=== PATIENT | male | born 1955 | race Caucasian/White ===

== ENCOUNTER 2021-01-10 20:10 | Observation (INO) | payer MEDICARE, OTHER ==
[~2021-01-10] VITALS: Ht 167.6 cm; Wt 93.0 kg
[~2021-01-10 20:10] MED LIST: AMIODARONE HCL200 MG PO; ASPIR 8181 MG PO; ATIVAN0.5 MG PO; ATORVASTATIN CA20 MG PO; DEXILANT30 MG PO; DEXILANT60 MG PO; DICYCLOMINE HCL20 MG PO; FENOFIBRATE145 MG PO; FISH OIL300 MG PO; LEVOTHYROXINE50 MCG PO; LEXAPRO10 MG PO; LISINOPRIL2.5 MG PO; METOPROLOL SUCC50 MG PO; MIDODRINE HCL5 MG PO; OMEPRAZOLE20 M1 PO; OMEPRAZOLE20 MG PO; SUCRALFATE1 GM PO; ULTRAM50 MG PO; WARFARIN SODIUM5 MG PO; Z.0.ATENOLOL50 MG PO; Z.0.CRESTOR5 MG PO; ZESTRIL10 MG PO; ZYRTEC-D TABLE1 EACH PO; ZYRTEC10 M3
[2021-01-10 21:16] LABS: BASOPHILS # (AUTO) 0.1 (0.0-0.1); BASOPHILS % 1.5 % (0.0-1.0); EOSINOPHILS # (AUTO) 0.9 (0.0-0.4); EOSINOPHILS % 10.6 % (0.0-6.0); HEMOGLOBIN 13.8 g/dL (14.0-18.0); LYMPHOCYTES # (AUTO) 3.1 (1.0-3.2); LYMPHOCYTES % 38.5 % (18.0-39.1); MEAN CORPUSCULAR HEMOGLOBIN 28.6 pg (28-32); MEAN CORPUSCULAR HGB CONC 33.7 g/dL (31-35); MEAN CORPUSCULAR VOLUME 85.1 fL (81-99); MONOCYTES # (AUTO) 0.8 (0.2-0.8); MONOCYTES % 9.6 % (4.4-11.3); NEUTROPHILS # (AUTO) 3.2 (2.1-6.9); NEUTROPHILS % 39.4 % (38.7-80.0); PLATELET COUNT 274 x10e3/uL (140-360); RED BLOOD COUNT 4.82 x10e6/uL (4.3-5.7)
[2021-01-10 21:34] LABS: ALANINE AMINOTRANSFERASE 16 IU/L (0-55); ALBUMIN 4.2 g/dL (3.5-5.0); ALBUMIN/GLOBULIN RATIO 1.6 (0.8-2.0); ALKALINE PHOSPHATASE 93 IU/L (40-150); ANION GAP 13.2 mmol/L (8-16); BLOOD UREA NITROGEN 11 mg/dL (7-26); BUN/CREATININE RATIO 10 (6-25); CALCIUM 8.8 mg/dL (8.4-10.2); CARBON DIOXIDE 26 mmol/L (22-29); CHLORIDE 104 mmol/L (98-107); CREATINE KINASE 108 IU/L (30-200); CREATININE, SERUM 1.07 mg/dL (0.72-1.25); EST GLOMERULAR FILTRATION RATE > 60 ML/MIN (60-); GLUCOSE 103 mg/dL (74-118); POTASSIUM 4.2 mmol/L (3.5-5.1); SODIUM 139 mmol/L (136-145)
[2021-01-10] MEDS ORDERED: ASPIRIN 81 MG CHEW TAB PO ONE (21:45)
[2021-01-11 00:06] VITALS: BP 143/94
[2021-01-11] MEDS ORDERED: ZETIA10 MG PO (00:20)
[2021-01-11] MEDS ORDERED: OZEMPIC INJ (00:20)
[2021-01-11] MEDS ORDERED: WARFARIN SODIUM3 MG PO (00:20)
[2021-01-11] MEDS ORDERED: METFORMIN HCL500 MG PO (00:20)
[2021-01-11 04:57] VITALS: BP 97/71
[2021-01-11 06:36] LABS: BASOPHILS # (AUTO) 0.1 (0.0-0.1); BASOPHILS % 1.4 % (0.0-1.0); EOSINOPHILS # (AUTO) 0.8 (0.0-0.4); HEMATOCRIT 41.5 % (38.2-49.6); HEMOGLOBIN 13.7 g/dL (14.0-18.0); LYMPHOCYTES # (AUTO) 2.3 (1.0-3.2); LYMPHOCYTES % 36.4 % (18.0-39.1); MEAN CORPUSCULAR HEMOGLOBIN 28.6 pg (28-32); MEAN CORPUSCULAR VOLUME 86.6 fL (81-99); MONOCYTES # (AUTO) 0.6 (0.2-0.8); MONOCYTES % 8.9 % (4.4-11.3); NEUTROPHILS # (AUTO) 2.5 (2.1-6.9); NEUTROPHILS % 39.7 % (38.7-80.0); PLATELET COUNT 233 x10e3/uL (140-360); RED BLOOD COUNT 4.79 x10e6/uL (4.3-5.7); RED CELL DISTRIBUTION WIDTH 13.2 % (11.7-14.4)
[2021-01-11 06:58] LABS: ALANINE AMINOTRANSFERASE 16 IU/L (0-55); ALBUMIN 3.7 g/dL (3.5-5.0); ALBUMIN/GLOBULIN RATIO 1.3 (0.8-2.0); ALKALINE PHOSPHATASE 72 IU/L (40-150); ANION GAP 13.5 mmol/L (8-16); BLOOD UREA NITROGEN 12 mg/dL (7-26); BUN/CREATININE RATIO 11 (6-25); CALCIUM 8.6 mg/dL (8.4-10.2); CARBON DIOXIDE 24 mmol/L (22-29); CHLORIDE 107 mmol/L (98-107); CHOL/HDL RATIO 3.4 (3.9-4.7); CHOLESTEROL 127 MD/DL (0-199); CREATININE, SERUM 1.09 mg/dL (0.72-1.25); EST GLOMERULAR FILTRATION RATE > 60 ML/MIN (60-); GLUCOSE 97 mg/dL (74-118); HDL CHOLESTEROL 37 MG/DL (40-60); LDL CHOLESTEROL 60 MG/DL (60-130); POTASSIUM 4.5 mmol/L (3.5-5.1); SODIUM 140 mmol/L (136-145); TRIGLYCERIDES 152 MG/DL (0-149)
[2021-01-11 07:22] LABS: CREATINE KINASE MB 1.1 ng/mL (0-5.0)
[2021-01-11 07:26] VITALS: BP 118/79
[2021-01-11] MEDS ORDERED: LORAZEPAM 0.5 MG TAB PO PRN (08:00)
[2021-01-11] MEDS ORDERED: LEVOTHYROXINE SODIUM 88 MCG TAB PO SCH (08:23)
[2021-01-11 08:36] VITALS: BP 118/79
[2021-01-11] MEDS: SUCRALFATE 1 GM TAB PO SCH ×3 (08:54→18:01)
[2021-01-11] MEDS: METOPROLOL SUCCINATE 50 MG TAB XL PO SCH ×2 (08:54→18:01)
[2021-01-11] MEDS ORDERED: ESCITALOPRAM OXALATE 10 MG TAB PO SCH (09:00)
[2021-01-11] MEDS ORDERED: ASPIRIN 81 MG CHEW TAB PO SCH (09:00)
[2021-01-11] MEDS ORDERED: LISINOPRIL 10 MG TAB PO SCH (09:00)
[2021-01-11] MEDS ORDERED: EZETIMIBE 10 MG TAB PO SCH (09:00)
[2021-01-11] MEDS ORDERED: PANTOPRAZOLE SOD 40 MG TABEC PO SCH (10:00)
[2021-01-11 11:24] VITALS: BP 115/78
[2021-01-11 14:21] LABS: CREATINE KINASE 81 IU/L (30-200)
[2021-01-11 15:01] VITALS: BP 113/82
[2021-01-11] MEDS ORDERED: WARFARIN SOD 3 MG TAB PO SCH (17:00)
[2021-01-11 17:46] LABS: INR 1.37; PROTHROMBIN TIME 17.5 seconds (11.9-14.5)
[2021-01-11] MEDS ORDERED: CYCLOBENZAPRINE10 MG PO (18:35)
[2021-01-11] MEDS ORDERED: ATORVASTATIN 40 MG TAB PO SCH (21:00)
[2021-01-11] MEDS ORDERED: TRAMADOL HCL 50 MG TAB PO SCH (21:00)
[2021-01-12] MEDS ORDERED: ESCITALOPRAM OXALATE 10 MG TAB PO SCH (09:00)
== END 2021-01-11 18:49 | disposition home or self-care (01) ==
LOC: ER 20:22 → ERHOLD 21:47 → MED/SURG 23:45
PROVIDERS: ADMIT Internal Medicine; ATTEND Internal Medicine
DX: R07.89 Other chest pain (principal); I10 Essential (primary) hypertension; E11.9 Type 2 diabetes mellitus without complications; E78.5 Hyperlipidemia, unspecified; Z87.891 Personal history of nicotine dependence; Z88.5 Allergy status to narcotic agent; Z79.01 Long term (current) use of anticoagulants; F32.9 Major depressive disorder, single episode, unspecified; K21.9 Gastro-esophageal reflux disease without esophagitis; Z79.82 Long term (current) use of aspirin
CPT/HCPCS: 36415 ×2; 71045; 80053 ×2; 80061; 82550 ×2; 82553 ×2; 82948; 84484 ×2; 85025 ×2; 85610; 93005; 93306; 99284; G0378 ×2; S0164; U0002

== ENCOUNTER 2022-06-24 22:30 | Emergency (ER) | payer MEDICARE ==
[~2022-06-24] VITALS: Ht 167.6 cm; Wt 93.0 kg
[~2022-06-24 22:30] MED LIST changes: +CYCLOBENZAPRINE10 MG PO; +METFORMIN HCL500 MG PO; +OZEMPIC INJ; +WARFARIN SODIUM3 MG PO; +ZETIA10 MG PO
[2022-06-24] MEDS ORDERED: IBUPROFEN 600 MG TAB PO STA (23:01)
[2022-06-24] MEDS ORDERED: ONDANSETRON HCL 4 MG ORAL DISINTEGRATING TAB PO ONE (23:15)
[2022-06-24] MEDS ORDERED: IBUPROFEN 400 MG TAB PO ONE (23:15)
[2022-06-24] MEDS ORDERED: ONDANSETRON HCL 4 MG ORAL DISINTEGRATING TAB ONE (23:18)
[2022-06-24] MEDS ORDERED: IBUPROFEN 400 MG TAB ONE (23:18)
[2022-06-24] MEDS ORDERED: ONDANSETRON ODT4 MG PO (23:45)
== END 2022-06-25 00:23 | disposition home or self-care (01) ==
LOC: ER 22:43
DX: R50.9 Fever, unspecified (principal); J10.1 Influenza due to other identified influenza virus with other respiratory manifestations; R05.9 Cough, unspecified; I10 Essential (primary) hypertension; E11.9 Type 2 diabetes mellitus without complications; E78.5 Hyperlipidemia, unspecified; I48.91 Unspecified atrial fibrillation; Z20.822 Contact with and (suspected) exposure to COVID-19
CPT/HCPCS: 71045; 87400; 99283; Q0162; U0002

== ENCOUNTER → 2022-12-10 | Outpatient (CLI) | payer MEDICARE ==
[~2022-12-10] MED LIST changes: +ONDANSETRON ODT4 MG PO; +REGADENOSON 0.4 MG/5 ML SYR IV ONE
== END ==
LOC: NM 08:34
PROVIDERS: ATTEND Internal Medicine Cardiovascular Disease
DX: I25.10 Atherosclerotic heart disease of native coronary artery without angina pectoris (principal); I48.0 Paroxysmal atrial fibrillation
CPT/HCPCS: 78452; 93017; A9502; J2785